=== PATIENT | male | born 1945 | race Caucasian/White ===

== ENCOUNTER 2016-10-13 10:54 | Inpatient (IN) | payer OTHER, MEDICARE ==
[2016-10-13] VITALS (8 sets, daily range): BP systolic 86–129; BP diastolic 50–78
[~2016-10-13] VITALS: Ht 170.2 cm; Wt 61.5 kg
[~2016-10-13 10:54] MED LIST: ADVAIR HFA120 INHALA IH
[2016-10-13 12:26] LABS: HEMATOCRIT 32.7 % (38.0-50.0); MCH 26.6 PG (29.0-34.0); MCHC 30.3 G/DL (30.0-36.0); MCV 87.9 FL (86-99); MEAN PLAT.VOLUME 9.1 uM^3 (9.0-12.4); PLATELET COUNT 345 K/uL (156-360); RBC DIS.WIDTH-CV 17.3 % (11.8-14.6); RBC DIS.WIDTH-SD 54.7 % (39-53); RED BLOOD COUNT 3.72 M/uL (4.00-5.50); WHITE BLOOD COUNT 6.7 K/uL (4.1-10.2)
[2016-10-13 12:28] LABS: EOSINOPHIL (%) 1.5 % (0-5); EOSINOPHIL COUNT 0.1 K/uL (0-0.3); IMMATURE GRANULOCYTE (%) 0.2 % (0.0-0.7); IMMATURE GRANULOCYTE COUNT 0.1 K/uL; MONOCYTE (%) 7.7 % (3-12); MONOCYTE COUNT 0.5 K/uL (0-0.8); NEUTROPHIL (%) 75.1 % (45-76)
[2016-10-13 12:41] LABS: PTT 47.2 (25-32)
[2016-10-13 12:45] LABS: CHLORIDE 104 mEq/L (99-109); POTASSIUM 3.9 mEq/L (3.7-5.4); SODIUM 143 mEq/L (136-147)
[2016-10-13 12:46] LABS: MAGNESIUM 1.8 mg/dL (1.3-2.7)
[2016-10-13 12:47] LABS: GLUCOSE 109 mg/dL (70-99)
[2016-10-13 12:48] LABS: TROP-I INTERPRETATION NEGATIVE; TROPONIN-I < 0.01 ng/mL (0.0-0.30)
[2016-10-13 12:49] LABS: ANION GAP 11 MEQ/L (2-14)
[2016-10-13 12:51] LABS: INTER. NORMALIZED RATIO 2.7
[2016-10-13 12:51] LABS: GFR ESTIMATE (CALCULATED) > 59 mL/min/
[2016-10-13 12:52] LABS: UREA NITROGEN (BUN) 11 mg/dL (9-23)
[2016-10-13] MEDS ORDERED: SENOKOT,SENN1 TABLET PO (14:12)
[2016-10-13] MEDS ORDERED: RANITIDINE HCL150 MG PO (14:12)
[2016-10-13] MEDS ORDERED: MIRALAX255 GM PO (14:13)
[2016-10-13] MEDS ORDERED: DOCUSATE SODIU100 MG PO (14:13)
[2016-10-13] MEDS ORDERED: OCUTABS TABLET1 EACH PO (14:14)
[2016-10-13] MEDS ORDERED: FLOMAX0.4 MG PO (14:15)
[2016-10-13] MEDS ORDERED: REMERON15 M2 PO (14:15)
[2016-10-13] MEDS ORDERED: TYLENOL REGULA325 MG PO (14:16)
[2016-10-13] MEDS ORDERED: COUMADIN4 MG PO (14:16)
[2016-10-13] MEDS ORDERED: OXAYDO5 MG PO (14:17)
[2016-10-13] MEDS ORDERED: IPRATROPIU0.2 MG/1 M IH (14:17)
[2016-10-13] MEDS ORDERED: ALBUTEROL2.5 MG/3 M IH (14:18)
[2016-10-13] MEDS ORDERED: DULCOLAX10 MG PR (14:19)
[2016-10-13] MEDS ORDERED: MILK OF MAGN PO (14:19)
[2016-10-13] MEDS ORDERED: FLEET ENEMA-AD118 ML PR (14:20)
[2016-10-13 19:57] LABS: HEMATOCRIT 33.6 % (38.0-50.0); MCV 86.8 FL (86-99)
[2016-10-14] VITALS (7 sets, daily range): BP systolic 97–136; BP diastolic 51–74
[2016-10-14 07:00] LABS: HEMATOCRIT 31.8 % (38.0-50.0); MCV 86.6 FL (86-99)
[2016-10-14 07:25] LABS: INTER. NORMALIZED RATIO 3.4; PROTHROMBIN TIME 35.5 (9.2-11.2)
[2016-10-14 07:28] LABS: ANION GAP 8 MEQ/L (2-14); CHLORIDE 107 MEQ/L (99-109); GFR ESTIMATE (CALCULATED) > 59 mL/min/; GLUCOSE 90 mg/dL (70-99); POTASSIUM 3.7 MEQ/L (3.7-5.4); SAMPLE HEMOLYSIS CHECK 0; SAMPLE ICTERIC CHECK 0; SAMPLE LIPEMIA CHECK 0; SODIUM 142 MEQ/L (136-147); UREA NITROGEN (BUN) 7 mg/dL (9-23)
[2016-10-14 20:08] LABS: HEMATOCRIT 31.9 % (38.0-50.0); MCV 88.6 FL (86-99)
[2016-10-15] VITALS (10 sets, daily range): BP systolic 114–134; BP diastolic 65–74
[2016-10-15 06:42] LABS: HEMATOCRIT 31.9 % (38.0-50.0); MCH 27.1 PG (29.0-34.0); MCHC 30.4 G/DL (30.0-36.0); MCV 89.1 FL (86-99); MEAN PLAT.VOLUME 9.7 uM^3 (9.0-12.4); PLATELET COUNT 307 K/uL (156-360); RBC DIS.WIDTH-CV 16.9 % (11.8-14.6); RBC DIS.WIDTH-SD 55.4 % (39-53); RED BLOOD COUNT 3.58 M/uL (4.00-5.50); WHITE BLOOD COUNT 4.8 K/uL (4.1-10.2)
[2016-10-15 06:53] LABS: PTT 52.3 (25-32)
[2016-10-15 07:00] LABS: EOSINOPHIL (%) 3.1 % (0-5); EOSINOPHIL COUNT 0.2 K/uL (0-0.3); IMMATURE GRANULOCYTE (%) 0.2 % (0.0-0.7); LYMPHOCYTE COUNT 0.7 K/uL (1.0-2.8); MONOCYTE (%) 10.8 % (3-12); MONOCYTE COUNT 0.5 K/uL (0-0.8); NEUTROPHIL (%) 71.3 % (45-76); NEUTROPHIL COUNT 3.4 K/uL (1.8-6.4)
[2016-10-15 07:07] LABS: ANION GAP 7 MEQ/L (2-14); CHLORIDE 109 MEQ/L (99-109); GFR ESTIMATE (CALCULATED) > 59 mL/min/; GLUCOSE 82 mg/dL (70-99); POTASSIUM 3.7 MEQ/L (3.7-5.4); SAMPLE HEMOLYSIS CHECK 0; SAMPLE ICTERIC CHECK 0; SAMPLE LIPEMIA CHECK 0; SODIUM 144 MEQ/L (136-147); UREA NITROGEN (BUN) 5 mg/dL (9-23)
[2016-10-15 19:19] LABS: INTER. NORMALIZED RATIO 2.4; PROTHROMBIN TIME 25.1 (9.2-11.2)
[2016-10-15 21:11] LABS: HEMATOCRIT 28.1 % (38.0-50.0); MCV 87.8 FL (86-99)
[2016-10-16 00:35] VITALS: BP 120/62
[2016-10-16 04:24] VITALS: BP 121/67
[2016-10-16 07:30] LABS: HEMATOCRIT 27.8 % (38.0-50.0); MCH 27.4 PG (29.0-34.0); MCHC 30.9 G/DL (30.0-36.0); MCV 88.5 FL (86-99); MEAN PLAT.VOLUME 9.1 uM^3 (9.0-12.4); PLATELET COUNT 279 K/uL (156-360); RBC DIS.WIDTH-SD 55.2 % (39-53); RED BLOOD COUNT 3.14 M/uL (4.00-5.50)
[2016-10-16 07:31] LABS: HEMATOCRIT 27.8 % (38.0-50.0); MCV 88.5 FL (86-99)
[2016-10-16 07:38] LABS: PROTHROMBIN TIME 31.4 (9.2-11.2)
[2016-10-16 07:40] LABS: EOSINOPHIL (%) 6.7 % (0-5); EOSINOPHIL COUNT 0.3 K/uL (0-0.3); IMMATURE GRANULOCYTE (%) 0.2 % (0.0-0.7); LYMPHOCYTE COUNT 0.8 K/uL (1.0-2.8); MONOCYTE COUNT 0.5 K/uL (0-0.8); NEUTROPHIL (%) 61.7 % (45-76); NEUTROPHIL COUNT 2.5 K/uL (1.8-6.4)
[2016-10-16 07:50] VITALS: BP 110/67
[2016-10-16 07:58] LABS: ANION GAP 5 MEQ/L (2-14); CHLORIDE 108 MEQ/L (99-109); GFR ESTIMATE (CALCULATED) > 59 mL/min/; GLUCOSE 94 mg/dL (70-99); SAMPLE HEMOLYSIS CHECK 0; SAMPLE ICTERIC CHECK 0; SAMPLE LIPEMIA CHECK 0; SODIUM 145 MEQ/L (136-147); UREA NITROGEN (BUN) 3 mg/dL (9-23)
[2016-10-16 10:38] VITALS: BP 115/66
[2016-10-16 13:13] LABS: PROTHROMBIN TIME 20.8 (9.2-11.2); PTT 43.2 (25-32)
[2016-10-16 20:00] VITALS: BP 129/71
[2016-10-16 20:57] LABS: HEMATOCRIT 28.3 % (38.0-50.0); MCV 89.6 FL (86-99)
[2016-10-17] VITALS (7 sets, daily range): BP systolic 104–134; BP diastolic 60–83
[2016-10-17 07:13] LABS: NRBC (%) 0.9 /100 WBC (0-0)
[2016-10-17 07:36] LABS: ANION GAP 6 MEQ/L (2-14); CHLORIDE 107 MEQ/L (99-109); SAMPLE HEMOLYSIS CHECK 0; SAMPLE ICTERIC CHECK 0; SAMPLE LIPEMIA CHECK 0; SODIUM 143 MEQ/L (136-147)
[2016-10-17 07:37] LABS: HEMATOCRIT 28.1 % (38.0-50.0); MCV 89.2 FL (86-99)
[2016-10-17 07:38] LABS: DELETE MACHINE DIFF? YES
[2016-10-17 07:41] LABS: GFR ESTIMATE (CALCULATED) > 59 mL/min/; GLUCOSE 100 mg/dL (70-99); UREA NITROGEN (BUN) 3 mg/dL (9-23)
[2016-10-17 09:53] LABS: HEMATOCRIT 28.1 % (38.0-50.0); MCH 27.3 PG (29.0-34.0); MCHC 30.6 G/DL (30.0-36.0); MCV 89.2 FL (86-99); MEAN PLAT.VOLUME 10.3 uM^3 (9.0-12.4); PLATELET COUNT 294 K/uL (156-360); RBC DIS.WIDTH-CV 17.1 % (11.8-14.6); RBC DIS.WIDTH-SD 55.4 % (39-53); RED BLOOD COUNT 3.15 M/uL (4.00-5.50)
[2016-10-17 09:58] LABS: ABS NEUTROPHIL COUNT 3.57; EOSINOPHIL ABS CT 0.47; PLAT.SUFFICIENCY ADEQUATE; USER ID STC
[2016-10-17 10:03] LABS: WHITE BLOOD COUNT 5.3 K/uL (4.1-10.2)
[2016-10-17 20:21] LABS: HEMATOCRIT 29.7 % (38.0-50.0); MCV 88.4 FL (86-99)
[2016-10-18 03:55] VITALS: BP 130/63
[2016-10-18 06:42] LABS: HEMATOCRIT 29.7 % (38.0-50.0); MCV 88.7 FL (86-99)
[2016-10-18 06:52] LABS: EOSINOPHIL (%) 5.5 % (0-5); EOSINOPHIL COUNT 0.2 K/uL (0-0.3); HEMATOCRIT 30.3 % (38.0-50.0); IMMATURE GRANULOCYTE (%) 0.3 % (0.0-0.7); LYMPHOCYTE COUNT 0.7 K/uL (1.0-2.8); MCH 26.9 PG (29.0-34.0); MCHC 30.4 G/DL (30.0-36.0); MCV 88.6 FL (86-99); MEAN PLAT.VOLUME 9.7 uM^3 (9.0-12.4); MONOCYTE (%) 11.6 % (3-12); MONOCYTE COUNT 0.4 K/uL (0-0.8); NEUTROPHIL (%) 62.1 % (45-76); NEUTROPHIL COUNT 2.2 K/uL (1.8-6.4); PLATELET COUNT 308 K/uL (156-360); RBC DIS.WIDTH-SD 55.4 % (39-53); RED BLOOD COUNT 3.42 M/uL (4.00-5.50)
[2016-10-18 06:53] LABS: WHITE BLOOD COUNT 3.5 K/uL (4.1-10.2)
[2016-10-18 07:18] LABS: ANION GAP 5 MEQ/L (2-14); CHLORIDE 105 MEQ/L (99-109); GFR ESTIMATE (CALCULATED) > 59 mL/min/; GLUCOSE 99 mg/dL (70-99); POTASSIUM 3.2 MEQ/L (3.7-5.4); SAMPLE HEMOLYSIS CHECK 0; SAMPLE ICTERIC CHECK 0; SAMPLE LIPEMIA CHECK 0; SODIUM 141 MEQ/L (136-147); UREA NITROGEN (BUN) 3 mg/dL (9-23)
[2016-10-18 08:54] VITALS: BP 136/83
[2016-10-18 12:25] VITALS: BP 116/77
[2016-10-18] MEDS ORDERED: PROTONIX40 MG PO (14:01)
[2016-10-18] MEDS ORDERED: K-DUR20 MEQ PO (14:01)
[2016-10-18] MEDS ORDERED: OXAYDO5 MG PO (14:01)
[2016-10-18 16:00] VITALS: BP 123/78
== END 2016-10-18 16:53 | DRG 378 ==
LOC: EME → EDBD 10:54 → EME 10:54 → 2EAST 14:39 → EDOF 14:39 → 2EAST 18:19
PROVIDERS: Emergency Medicine; Family Medicine; Internal Medicine Gastroenterology
PROC: 30233N1 Transfusion of Nonautologous Red Blood Cells into Peripheral Vein, Percutaneous Approach (ICD-10-PCS; 2016-10-13)
PROC: 0DJ08ZZ Inspection of Upper Intestinal Tract, Via Natural or Artificial Opening Endoscopic (ICD-10-PCS; principal; 2016-10-14)
PROC: 0DBN8ZX Excision of Sigmoid Colon, Via Natural or Artificial Opening Endoscopic, Diagnostic (ICD-10-PCS; 2016-10-16)
DX: K92.2 Gastrointestinal hemorrhage, unspecified (principal); D62 Acute posthemorrhagic anemia; J44.9 Chronic obstructive pulmonary disease, unspecified; K21.9 Gastro-esophageal reflux disease without esophagitis; Z79.01 Long term (current) use of anticoagulants; Z86.711 Personal history of pulmonary embolism; Z87.828 Personal history of other (healed) physical injury and trauma; Z87.81 Personal history of (healed) traumatic fracture; Z96.611 Presence of right artificial shoulder joint; K44.9 Diaphragmatic hernia without obstruction or gangrene; E87.6 Hypokalemia; N40.0 Benign prostatic hyperplasia without lower urinary tract symptoms; Z87.891 Personal history of nicotine dependence; D12.5 Benign neoplasm of sigmoid colon; K64.8 Other hemorrhoids; K26.9 Duodenal ulcer, unspecified as acute or chronic, without hemorrhage or perforation; K57.30 Diverticulosis of large intestine without perforation or abscess without bleeding; K29.70 Gastritis, unspecified, without bleeding
CPT/HCPCS: 71010; 80048; 80069; 83735; 84484; 85014; 85018; 85025; 85027; 85610; 85730; 86850; 86900; 86901; 86920; 88305; 93005; 94799; 99202; 99281; 99285; B4087; C9113; J3480; J7030; P9016; P9017

== ENCOUNTER → 2016-12-11 | Outpatient (CLI) | payer OTHER, MEDICARE ==
[~2016-12-11] MED LIST changes: +ALBUTEROL2.5 MG/3 M IH; +COUMADIN4 MG PO; +DOCUSATE SODIU100 MG PO; +DULCOLAX10 MG PR; +FLEET ENEMA-AD118 ML PR; +FLOMAX0.4 MG PO; +IPRATROPIU0.2 MG/1 M IH; +K-DUR20 MEQ PO; +MILK OF MAGN PO; +MIRALAX255 GM PO; +OCUTABS TABLET1 EACH PO; +OXAYDO5 MG PO; +PROTONIX40 MG PO; +RANITIDINE HCL150 MG PO; +REMERON15 M2 PO; +SENOKOT,SENN1 TABLET PO; +TYLENOL REGULA325 MG PO
== END ==
LOC: MRI 12:52 → RAD 13:30
DX: Z53.8 Procedure and treatment not carried out for other reasons (principal)

== ENCOUNTER 2018-01-28 13:25 | Emergency (ER) | payer OTHER ==
[~2018-01-28] VITALS: Ht 170.2 cm; Wt 45.3 kg
[2018-01-28 14:31] LABS: HEMATOCRIT 41.1 % (38.0-50.0); MCH 32.2 PG (29.0-34.0); MCHC 34.1 G/DL (30.0-36.0); MCV 94.5 FL (86-99); PLATELET COUNT 184 K/uL (156-360); RBC DIS.WIDTH-CV 14.3 % (11.8-14.6); RBC DIS.WIDTH-SD 50.4 % (39-53); RED BLOOD COUNT 4.35 M/uL (4.00-5.50)
[2018-01-28 14:42] LABS: CHLORIDE 107 mEq/L (99-109); SODIUM 140 mEq/L (136-147)
[2018-01-28 14:44] LABS: GLUCOSE 100 mg/dL (70-99)
[2018-01-28 14:48] LABS: CREATININE 0.7 mg/dL (0.6-1.3); GFR ESTIMATE (CALCULATED) > 59 mL/min/ (58.99-99999)
[2018-01-28 14:49] LABS: UREA NITROGEN (BUN) 11 mg/dL (9-23)
[2018-01-28 15:00] LABS: APPEARANCE SL.HAZY ((CLEAR)); BILIRUBIN NEGATIVE; BLOOD MODERATE; COLOR YELLOW ((YELLOW)); GLUCOSE (STRIP) NEGATIVE; KETONES NEGATIVE; LEUKOCYTES MODERATE; NITRITE NEGATIVE; PROTEIN (STRIP) 100; SPECIFIC GRAVITY 1.018 (1.000-1.030); UROBILINOGEN 0.2 MG/DL (0.2-1.0)
[2018-01-28 15:03] LABS: BACTERIA RARE /HPF; EPITHELIAL CELLS RARE /HPF; MUCUS TRACE /LPF; RED BLOOD CELLS 30-40 /HPF (0-5); UCUL ADDED? YES; WHITE BLOOD CELLS 20-30 /HPF (0-5)
[2018-01-28 15:15] LABS: AMPHETAMINE NEGATIVE (500 ng/mL); BARBITURATES NEGATIVE (200 ng/mL); BENZODIAZEPINES NEGATIVE (150 ng/mL); BUPRENORPHINE NEGATIVE (10 ng/mL); COCAINE NEGATIVE (150 ng/mL); METHADONE NEGATIVE (200 ng/mL); METHAMPHETAMINE NEGATIVE (500 ng/mL); OPIATES (MORPHINE) NEGATIVE (100 ng/mL); OXYCODONE NEGATIVE (100 ng/mL); PHENCYCLIDINE NEGATIVE (25 ng/mL); PROPOXYPHENE NEGATIVE (300 ng/mL); THC CANNABINOIDS NEGATIVE (50 ng/mL); TRICYCLIC ANTIDEPRESSANTS NEGATIVE (300 ng/mL)
[2018-01-28] MEDS ORDERED: SEROQUEL12.5 MG PO (16:12)
[2018-01-28] MEDS ORDERED: BACTRIM,SEPT1 TABLET PO (16:12)
[2018-01-28 17:45] VITALS: BP 126/77
== END 2018-01-28 17:46 ==
LOC: EME 13:25
PROVIDERS: Emergency Medicine
DX: N39.0 Urinary tract infection, site not specified (principal); F02.81 Dementia in other diseases classified elsewhere, unspecified severity, with behavioral disturbance; F41.9 Anxiety disorder, unspecified; Z04.6 Encounter for general psychiatric examination, requested by authority; K21.9 Gastro-esophageal reflux disease without esophagitis; Z96.619 Presence of unspecified artificial shoulder joint; Z87.891 Personal history of nicotine dependence
CPT/HCPCS: 80048; 81003; 85027; 87086; 90837; 99281; 99284